=== PATIENT | male | born 1990 | race Caucasian/White ===

== ENCOUNTER 2019-10-02 00:29 | Emergency (ER) | payer SELFPAY ==
[~2019-10-02] VITALS: Ht 180.3 cm; Wt 100.0 kg
[2019-10-02 00:32] VITALS: Ht 180.3 cm; Wt 100.0 kg
--- NOTE | 2019-10-02 01:06 | NUR ---
PT IS A HIGH RISK PER ASSESSMENT. SITTER ORDERED PER DR. PARK. ATTENDING AND DR PARK NOTIFIED OF RESULTS. SAFETY PLAN INITIATED. PT IN PAPERSCRUBS AND BELONGINGS AT NURSES STATION.
[2019-10-02 01:09] LABS: BASOPHILS 0.1 % (0-2); EOSINOPHILS 0.8 % (0-7); HEMATOCRIT 46.7 % (42.0-54.0); HEMOGLOBIN 16.7 g/dL (13.5-17.5); IMMATURE GRANULOCYTES 0.3 % (0-5); LYMPHOCYTES 23.2 % (15-50); MCH 33.7 pg (26.0-34.0); MCHC 35.8 g/dL (31.0-37.0); MCV 94.3 fL (80.0-100.0); MEAN PLATELET VOLUME 11.4 fL (7.4-10.4); MONOCYTES 7.4 % (2-11); NEUTROPHILS 68.2 % (40-80); PLATELET COUNT 239 10x3/uL (130-400); RBC 4.95 10x6/uL (4.20-6.10)
[2019-10-02 01:11] LABS: CALC OSMOLALITY 285 mosm/kg (275-300); CALCIUM 8.2 mg/dL (8.5-10.1); CARBON DIOXIDE 29.9 mmol/L (21.0-32.0); CHLORIDE - SERUM 105 mmol/L (98-107); CREATININE - SERUM 0.9 mg/dL (0.6-1.3); GLUCOSE 83 mg/dL (74-106); POTASSIUM - SERUM 3.4 mmol/L (3.5-5.1); SODIUM 144 mmol/L (136-145); UREA NITROGEN 12 mg/dL (7-18); eGFR NON AFRICAN AMERICAN > 90 mL/min (90-120)
[2019-10-02 01:18] LABS: APPEARANCE CLEAR (CLEAR); BILIRUBIN NEGATIVE (NEGATIVE); COLOR YELLOW (YELLOW); GLUCOSE NEGATIVE (NEGATIVE); KETONE NEGATIVE (NEGATIVE); NITRITE NEGATIVE (NEGATIVE); PROTEIN 1+ mg/dL (NEGATIVE); SPECIFIC GRAVITY 1.025 (1.005-1.020); UROBILINOGEN NORMAL (NORMAL)
[2019-10-02 01:21] LABS: BACTERIA NONE SEEN /hpf (NEGATIVE); EPITHELIAL CELLS 0-5 /hpf (0-5); RED CELLS - URINE 0-5 /hpf (0-5); WHITE CELLS - URINE 0-5 /hpf (NEGATIVE)
[2019-10-02 01:23] LABS: UDS - AMPHET NEGATIVE QUAL (NEGATIVE); UDS - BARB NEGATIVE QUAL (NEGATIVE); UDS - BENZO NEGATIVE QUAL (NEGATIVE); UDS - COCAINE NEGATIVE QUAL (NEGATIVE); UDS - OPIATE NEGATIVE QUAL (NEGATIVE); UDS - PCP NEGATIVE QUAL (NEGATIVE); UDS - THC POSITIVE QUAL (NEGATIVE)
[2019-10-02 01:28] LABS: ALBUMIN 3.9 g/dL (3.4-5.0); ALKALINE PHOSPHATASE 80 U/L (46-116); ALT (SGPT) 68 U/L (10-68); BILIRUBIN - TOTAL 0.41 mg/dL (0.2-1.3); CREATINE KINASE 168 UL (21-232); PROTEIN - SERUM 7.8 g/dL (6.4-8.2)
[2019-10-02 01:29] LABS: THYROID STIMULATING HORMONE 0.51 uIU/mL (0.36-3.74)
[2019-10-02 06:05] VITALS: BP 121/91
== END 2019-10-02 07:15 ==
LOC: D.ER 00:29
PROVIDERS: Family Medicine
DX: R45.851 Suicidal ideations (principal)